=== PATIENT | male | born 1970 ===

== ENCOUNTER 2017-12-10 15:40 | Emergency (ER) | payer MEDICAID ==
[2017-12-10 15:55] VITALS: BP 128/69; PULSE 60; RESP 18; TEMP 99; O2SAT 99
--- NOTE | 2017-12-10 16:21 | ED PDOC ---
HPI: General Adult Time Seen by Provider: 12/10/17 15:59 Chief Complaint (Nursing): ENT Problem Chief Complaint (Provider): left ear pain History Per: Patient History/Exam Limitations: no limitations Additional Complaint(s): Jeremi Oakley, a 47 year old male with no significant past medical history, presents to the emergency department with left ear pain onset 2-3 days ago. [place] into his ear. He denies any fever of chills. No further medical complaints. Past Medical History Reviewed: Historical Data, Nursing Documentation, Vital Signs Vital Signs: Last Vital Signs Temp 99.0 F 12/10/17 15:53 Pulse 60 12/10/17 15:53 Resp 18 12/10/17 15:53 BP 128/69 12/10/17 15:53 Pulse Ox 99 12/10/17 16:23 - Surgical History Surgical History: Cholecystectomy - Family History Family History: States: No Known Family Hx - Home Medications Home Medications: Ambulatory Orders Medication Instructions Recorded Ibuprofen [Motrin] 600 mg PO Q8 PRN #21 tab 12/10/17 Neomycin/Polymyxin/Hydrocort 4 drop OS QID #1 bottle 12/10/17 [Cortisporin Otic Soln] - Allergies Allergies/Adverse Reactions: Allergies Allergy/AdvReac Type Severity Reaction Status Date / Time No Known Allergies Allergy Verified 12/10/17 15:53 Review of Systems ROS Statement: Except As Marked, All Systems Reviewed And Found Negative Constitutional: Negative for: Fever, Chills ENT: Positive for: Ear Pain (left) Physical Exam - Reviewed Nursing Documentation Reviewed: Yes Vital Signs Reviewed: Yes - Physical Exam Appears: Positive for: Well, Non-toxic, No Acute Distress Head Exam: Positive for: ATRAUMATIC, NORMAL INSPECTION, NORMOCEPHALIC ENT: Positive for: Other (a lot of erythema and exudate in ear cannal but no tragal tenderness) - ECG O2 Sat by Pulse Oximetry: 99 (RA) Pulse Ox Interpretation: Normal Disposition - Clinical Impression Clinical Impression: Otitis externa of left ear - Patient ED Disposition Is Patient to be Admitted: No - Disposition Referrals: Mio Quiroga MD [Staff Provider] - Disposition: Routine/Home Disposition Time: 16:00 Condition: FAIR Prescriptions: Ibuprofen [Motrin] 600 mg PO Q8 PRN #21 tab PRN Reason: Pain, Moderate (4-7) Neomycin/Polymyxin/Hydrocort [Cortisporin Otic Soln] 4 drop OS QID #1 bottle Instructions: Outer Ear Infection (DC) Forms: [facility] (Somali) Print Language: PALAUAN
== END 2017-12-10 16:36 | disposition home or self-care (01) ==
LOC: H.ER 15:40
DX: H60.92 Unspecified otitis externa, left ear (principal)